=== PATIENT | male | born 1930 ===

== ENCOUNTER 2018-11-28 09:11 | Day surgery (SDC) | payer MEDICARE ==
[~2018-11-28 09:11] MED LIST: Acetaminophen TAB* 325 MG PO PRN; Buffered Lidocaine 1% SYRIN* 1 ML/SYRINGE INTRADERM ONE
[2018-11-28] MEDS ORDERED: fentaNYL* 50 MCG/ML 2 ML VIAL (100 MCG VIAL) ONE (10:48)
[2018-11-28] MEDS ORDERED: Midazolam* 1 MG/ML 5 ML VIAL (5 MG) ONE (10:48)
[2018-11-28] MEDS ORDERED: Proparacaine 0.5% OPHTH.SOL* 15 ML BTL ONE (12:59)
[2018-11-28] MEDS ORDERED: Neomycin/Polymy/Dex OPTH.SUSP* MAXITROL 0.1% 5 ML ONE (12:59)
[2018-11-28] MEDS ORDERED: Ketorolac 0.5% OPHTH (NF) 0.5 % 5 ML BTL ONE (12:59)
[2018-11-28] MEDS ORDERED: Lidocaine 2% w/ EPI 1:200,000* 20 ML SDV VIAL ONE (12:59)
[2018-11-28] MEDS ORDERED: Phenylephrine OPHTH SOL 2.5%* 2 ML ONE (12:59)
[2018-11-28] MEDS ORDERED: Lidocaine 1% MPF ** 5 ML VIAL ONE (12:59)
[2018-11-28] MEDS ORDERED: Povidone Iodine 5% OPTH* 30 ML BTL ONE (12:59)
[2018-11-28] MEDS ORDERED: Cyclopentolate 1% OPTH.SOL* 2 ML BTL ONE (12:59)
[2018-11-28] MEDS ORDERED: acetaZOLAMIDE TAB* 250 MG ONE (12:59)
[2018-11-28 13:04] VITALS: BP 113/50
--- NOTE | 2018-11-28 21:23 | OP ---
DATE OF OPERATION: 11/28/18 [facility] DATE OF : 34 SURGEON: Darion Loera M.D. PREOPERATIVE DIAGNOSIS: Cataract, right eye. POSTOPERATIVE DIAGNOSIS: Cataract, right eye. OPERATIVE PROCEDURE: Extracapsular cataract extraction with intraocular lens implant, right eye. DESCRIPTION OF PROCEDURE: The patient was brought to the operating room after being given 1/2% Alcaine with epinephrine drops in the preoperative area. The eye was prepped and draped in the usual sterile fashion. Sterile drape and eyelid speculum were placed. Again, topical 1/2% Alcaine with epinephrine was given. A paracentesis incision was made at the 9 o'clock position with the No.75 blade. Clear cornea incision 2.2 x 2.2-mm was created at the 12 o'clock position starting at the anterior limbus using the 2.2-mm keratome. The anterior chamber was irrigated with 0.4 mL of 1% non-preservative intracameral lidocaine and filled with DisCoVisc. A capsulorrhexis was completed using the cystotome and the Utrata forceps. Hydrodissection was performed with balanced salt solution. The lens nucleus was removed with the Phacoemulsification handpiece without incident. Cortex was removed with the irrigation-aspiration handpiece. The capsular bag was re-inflated using DisCoVisc and an SN60WF 21.5 implant was inserted with the shooter. The irrigation-aspiration handpiece was used to remove all residual DisCoVisc. The eye was refilled with balanced salt solution and the wound checked and found to be watertight. Topical Maxitrol drops were given. [id number]/[facility] #: [id number] MTDD
== END 2018-11-28 12:44 | disposition home or self-care (01) ==
LOC: OREAST 09:11
PROVIDERS: ATTEND Specialist
DX: Z01.818 Encounter for other preprocedural examination (principal); H25.811 Combined forms of age-related cataract, right eye; H35.373 Puckering of macula, bilateral; H25.12 Age-related nuclear cataract, left eye; H25.23 Age-related cataract, morgagnian type, bilateral; I10 Essential (primary) hypertension; E78.2 Mixed hyperlipidemia; D64.9 Anemia, unspecified; R73.01 Impaired fasting glucose; L57.0 Actinic keratosis
CPT/HCPCS: A9270-GY; J2250; J3010; V2632

== ENCOUNTER 2018-12-05 06:30 | Day surgery (SDC) | payer MEDICARE ==
[~2018-12-05 06:30] MED LIST changes: -Acetaminophen TAB* 325 MG PO PRN
[2018-12-05] MEDS ORDERED: Midazolam* 1 MG/ML 2 ML VIAL (2 MG) ONE (07:41)
[2018-12-05] MEDS ORDERED: Lidocaine 1% MPF ** 5 ML VIAL ONE (08:09)
[2018-12-05] MEDS ORDERED: Povidone Iodine 5% OPTH* 30 ML BTL ONE (08:09)
[2018-12-05] MEDS ORDERED: Lidocaine 2% w/ EPI 1:200,000* 20 ML SDV VIAL ONE (08:09)
[2018-12-05] MEDS ORDERED: acetaZOLAMIDE TAB* 250 MG ONE (08:09)
[2018-12-05] MEDS ORDERED: Phenylephrine OPHTH SOL 2.5%* 2 ML ONE (08:09)
[2018-12-05] MEDS ORDERED: Cyclopentolate 1% OPTH.SOL* 2 ML BTL ONE (08:09)
[2018-12-05] MEDS ORDERED: Proparacaine 0.5% OPHTH.SOL* 15 ML BTL ONE (08:09)
[2018-12-05] MEDS ORDERED: Neomycin/Polymy/Dex OPTH.SUSP* MAXITROL 0.1% 5 ML ONE (08:09)
[2018-12-05] MEDS ORDERED: Ketorolac 0.5% OPHTH (NF) 0.5 % 5 ML BTL ONE (08:09)
[2018-12-05 08:47] VITALS: BP 132/54
--- NOTE | 2018-12-05 11:00 | OP ---
OPERATIVE NOTE: DATE OF OPERATION: 12/05/18 DATE OF : 34 SURGEON: Darion Loera MD PREOPERATIVE DIAGNOSIS: Cataract, left eye. POSTOPERATIVE DIAGNOSIS: Cataract, left eye. OPERATIVE PROCEDURE: Extracapsular cataract extraction with intraocular lens implant, left eye. PROCEDURE: The patient was brought to the operating room after being given 1/2% Alcaine with epineph rine drops in the preoperative area. The eye was prepped and draped in the usual sterile fashion. S terile drape and eyelid speculum were placed. Again, topical 1/2% Alcaine with epinephrine was given . A paracentesis incision was made at the 3 o'clock position with the No.75 blade. Clear cornea inc ision 2.2 x 2.2-mm was created at the 6 o'clock position starting at the anterior limbus using the 2. 2-mm keratome. The anterior chamber was irrigated with 0.4 mL of 1% non-preservative intracameral li docaine and filled with DisCoVisc. A capsulorrhexis was completed using the cystotome and the Utrata forceps. Hydrodissection was performed with balanced salt solution. The lens nucleus was removed wi th the Phacoemulsification handpiece without incident. Cortex was removed with the irrigation-aspira tion handpiece. The capsular bag was re-inflated using DisCoVisc and an SN60WF 21.5 implant was inse rted with the shooter. The irrigation-aspiration handpiece was used to remove all residual DisCoVisc . The eye was refilled with balanced salt solution and the wound checked and found to be watertight. Topical Maxitrol drops were given. [id number]/[facility] #: [id number]
== END 2018-12-05 08:32 | disposition home or self-care (01) ==
LOC: OREAST 06:30
PROVIDERS: ATTEND Specialist
DX: H25.12 Age-related nuclear cataract, left eye (principal); H35.373 Puckering of macula, bilateral; I10 Essential (primary) hypertension; E78.00 Pure hypercholesterolemia, unspecified; Z87.891 Personal history of nicotine dependence; I65.29 Occlusion and stenosis of unspecified carotid artery; M19.90 Unspecified osteoarthritis, unspecified site
CPT/HCPCS: A9270-GY; J2250; V2632

== ENCOUNTER 2019-02-06 08:55 | Emergency (ER) | payer MEDICARE ==
[2019-02-06 09:05] VITALS: BP 130/60
--- NOTE | 2019-02-06 10:21 | UC ---
Truncal Trauma HPI - HPI Summary HPI Summary: 88 yo male presents with LEFT rib pain. He tells me that 3 days ago he slipped on the ice and fell onto his left shoulder and his elbow/forearm went into his left ribs. Did not hit his head or have LOC. Since that time has had left rib pain that is worse with deep breaths and movements. Pain has been improving. His brother had a DVT years ago and pt states he is concerned about a blood clot today. He denies fever, chills, SOB, chest pain, abdominal pain, n/v, back pain. - History Of Current Complaint Chief Complaint: UCGeneralIllness Stated Complaint: SLIPPED AND FELL HURT RIBS Time Seen by Provider: 02/06/19 10:20 Hx Obtained From: Patient Onset/Duration: Sudden Onset Severity Initially: Mild Severity Currently: Mild Pain Intensity: 3 Pain Scale Used: 0-10 Numeric - Allergies/Home Medications Allergies/Adverse Reactions: Allergies Allergy/AdvReac Type Severity Reaction Status Date / Time No Known Allergies Allergy Verified 02/06/19 09:05 PMH/Surg Hx/FS Hx/Imm Hx Endocrine History: Dyslipidemia Cardiovascular History: Hypertension - Surgical History Surgical History: None Surgery Procedure, Year, and Place: 03/12/13, RIGHT CARPAL TUNNEL RELEASE, [place] - Family History Known Family History: Positive: None - Social History Lives: With Family Alcohol Use: None Substance Use Type: None Smoking Status (MU): Never Smoked Tobacco When Did the Patient Quit Smoking/Using Tobacco: quit in late 60's Review of Systems All Other Systems Reviewed And Are Negative: No Constitutional: Positive: Negative Skin: Positive: Negative Respiratory: Positive: Negative Cardiovascular: Positive: Negative Neurovascular: Positive: Negative Musculoskeletal: Positive: Other: - Left rib pain Neurological: Positive: Negative Psychological: Positive: Negative Physical Exam - Summary Physical Exam Summary: GENERAL: NAD. WDWN. No pain distress. SKIN: No rashes, sores, lesions, or open wounds. NECK: Supple. Nontender. No lymphadenopathy. CHEST: Decreased breath sounds throughout. Breathing comfortably and in no distress. CV: RRR. Pulses intact. Cap refill <2seconds MSK: Mild TTP about anterolateral ~6th-7th rib. Pain reproduced with upper arm movements and truncal twisting. NEURO: Alert. PSYCH: Age appropriate behavior. Triage Information Reviewed: Yes Vital Signs: Initial Vital Signs Temp 98.6 F 02/06/19 09:01 Pulse 51 02/06/19 09:01 Resp 16 02/06/19 09:01 BP 130/60 02/06/19 09:01 Pulse Ox 96 02/06/19 09:01 Vital Signs Reviewed: Yes Diagnostics - Radiology Rib and chest XR Radiology Interpretation Completed By: Radiologist Summary of Radiographic Findings: FINDINGS: There is diffuse osteopenia. There is no displaced rib fracture. There is no appreciable pneumothorax. There are multiple calcified pleural plaques. IMPRESSION: 1. NO DISPLACED RIB FRACTURE OR PNEUMOTHORAX. 2. OSTEOPENIA. 3. MULTIPLE CALCIFIED PLEURAL PLAQUES. Truncal Trauma Course/Dx - Course Course Of Treatment: CXR as above. Pt has a history of asbestos exposure and mentions that he had a workup about 3- 4 years ago and was told there was nothing "they could do". No rib fracture. Wells score 0. Low suspicion for PE. Discussed with pt that his pain is likely due to the fall and has been improving without treatment or intervention, but if his concern remains for PE - to go to the ER for further evaluation. - Differential Dx/Diagnosis Provider Diagnosis: Rib contusion, Fall Discharge ED - Sign-Out/Discharge Documenting (check all that apply): Patient Departure All imaging exams completed and their final reports reviewed: Yes - Discharge Plan Condition: Stable Disposition: HOME Patient Education Materials: Rib Contusion (ED) Referrals: Theresa Jackson MD [Primary Care Provider] - Additional Instructions: If you develop a fever, shortness of breath, chest pain, new or worsening symptoms - please call your PCP or go to the ED immediately. I recommend that you see your primary doctor for follow up care of your asbestos exposure history - Billing Disposition and Condition Condition: STABLE Disposition: Home
== END 2019-02-06 10:54 | disposition home or self-care (01) ==
LOC: UCEAST 08:55
DX: S20.212A Contusion of left front wall of thorax, initial encounter (principal); M85.88 Other specified disorders of bone density and structure, other site; J92.9 Pleural plaque without asbestos; I10 Essential (primary) hypertension; W00.2XXA Other fall from one level to another due to ice and snow, initial encounter; Y92.9 Unspecified place or not applicable
CPT/HCPCS: 99211; G0463